=== PATIENT | male | born 1955 | race Caucasian/White ===

== ENCOUNTER 2017-10-12 12:46 | Day surgery (SDC) | payer OTHER ==
[2017-10-12] MEDS ORDERED: FLUMAZENIL 0.5 MG/5 ML MDV IVP PRN (13:20)
[2017-10-12] MEDS ORDERED: MIDAZOLAM 2 MG/2 ML VIAL IVP PRN (13:20)
[2017-10-12] MEDS ORDERED: MEPERIDINE 25 MG/ML SYR IVP PRN (13:20)
[2017-10-12] MEDS ORDERED: fentaNYL 100 MCG/2 ML INJ IVP PRN (13:20)
[2017-10-12] MEDS ORDERED: NALOXONE HCL 0.4 MG/ML INJ IVP PRN (13:20)
[2017-10-12] MEDS ORDERED: DEPO METHYLPREDNISOLONE 40 MG/ML SDV ONE ×2 (13:22→13:23)
[2017-10-12] MEDS ORDERED: DEPO METHYLPREDNISOLONE 80 MG/ML SDV ONE (13:24)
[2017-10-12] MEDS ORDERED: BUPIVACAINE 0.25% 30 ML SDV ONE (13:24)
[2017-10-12] MEDS ORDERED: LIDOCAINE 1% 2 ML INJ ONE (13:25)
[2017-10-12] MEDS ORDERED: LIDOCAINE 1% 300 MG/30 ML SDV ONE (13:25)
[2017-10-12] MEDS ORDERED: NS 1,000 ML IV SCH (13:30)
[2017-10-12] MEDS ORDERED: ACETAMINOPHEN 325 MG TAB PO PRN (16:13)
[2017-10-12] MEDS ORDERED: ONDANSETRON 4 MG/2 ML VIAL IVP PRN (16:13)
--- NOTE | 2017-10-12 16:13 | PDRADPRE ---
Radiology History & Physical Indication for procedure: back pain Home medications: Ibuprofen PRN 10/12/17 [Last Taken 10/10/17] Allergies/Adverse Reactions: No Known Allergies Allergy (Unverified 10/06/17 13:02) Mental status: A&Ox3 Mallampati Score: Class 2
--- NOTE | 2017-10-12 16:13 | PDPROPOC ---
Sedation Plan of Care ASA Classification: ASA 2 Mallampati Score: Class 2 Mallampati Reference Image:
--- NOTE | 2017-10-12 16:13 | PDRADPN ---
Radiology Procedure Note Date of Procedure: 10/12/17 Radiologist: Natan Copeland Anesthesia: IV Sedation Pre-op Diagnosis: back pain Post-op Diagnosis: same Procedure: bilateral L3-L4, L4-L5, L5-S1 facet injections Inf/Abcess present in the surg proc area at time of surgery?: No
[2017-10-12 17:21] VITALS: BP 112/69
== END 2017-10-12 15:10 | disposition home or self-care (01) ==
LOC: FIMAGING 12:46
PROVIDERS: ATTEND Physician Assistant
PROC: 3E0R3BZ Introduction of Anesthetic Agent into Spinal Canal, Percutaneous Approach (ICD-10-PCS; principal; 2017-10-12 15:57)
DX: M47.817 Spondylosis without myelopathy or radiculopathy, lumbosacral region (principal); M54.16 Radiculopathy, lumbar region
CPT/HCPCS: J1030; J1040; J2250; J2310; J3010